=== PATIENT | male | born 1985 | race Two or more races ===

== ENCOUNTER 2016-12-21 22:55 | Emergency (ER) | payer OTHER ==
[~2016-12-21] VITALS: Ht 170.2 cm; Wt 77.1 kg
[2016-12-22 00:05] VITALS: BP 129/82
[2016-12-22 00:25] LABS: MEAN CORPUSCULAR HEMOGLOBIN 32.2 PG (27.0-31.0); MEAN CORPUSCULAR HGB CONC 33.2 G/DL (32.0-36.0); MEAN CORPUSCULAR VOLUME 97 FL (80-99); MEAN PLATELET VOLUME 8.2 FL (6.5-10.1); PLATELET COUNT 221 K/UL (150-450); RED BLOOD COUNT 5.46 M/UL (4.70-6.10); RED CELL DISTRIBUTION WIDTH 11.3 % (11.6-14.8); WHITE BLOOD COUNT 5.3 K/UL (4.8-10.8)
[2016-12-22 00:40] LABS: ACETAMINOPHEN < 10 ug/mL (10-30); ALANINE AMINOTRANSFERASE 21 U/L (3-41); ALBUMIN/GLOBULIN RATIO 1.4 (1.0-2.7); ALCOHOL 117 mg/dL; ANION GAP 14 (5-15); ASPARTATE AMINO TRANSFERASE 38 U/L (5-40); CALCIUM 8.4 mg/dL (8.6-10.2); CARBON DIOXIDE 27 mEQ/L (20-30); CHLORIDE 103 mEQ/L (98-107); CREATININE 0.8 mg/dL (0.7-1.2); GLOMERULAR FILTRATION RATE > 60 mL/min (>60); HEMOLYSIS 261; POTASSIUM 5.4 mEQ/L (3.4-4.9); SODIUM 144 mEQ/L (135-145); TOTAL PROTEIN 7.2 g/dL (6.6-8.7)
--- NOTE | 2016-12-22 00:40 | Emergency Room Report ---
History of Present Illness General Chief Complaint: Overdose Source: Patient, EMS Present Illness HPI 31 YO FtoM transgender patient BIBEMS after intentional overdose by taking 10 5mg Valium at home because "i wanted to end it." Patient endorses tough time with depression, difficult process transitioning from Female to Male, alienation from family. He denies taking other drugs. Drank ETOH earlier in the day. Denies other medical problems. Denies known psych problems. Has tried suicide before by "cutting." Allergies: Coded Allergies: No Known Allergies (Unverified , 12/21/16) Patient History Past Medical History: none Past Surgical History: none Pertinent Family History: none Social History: Reports: alcohol use Immunizations: UTD Reviewed Nursing Documentation: PMH: Agreed, PSxH: Agreed Nursing Documentation-PMH Past Medical History: No Stated History Review of Systems All Other Systems: negative except mentioned in HPI Physical Exam Vital Signs Date Time Temp Pulse Resp B/P Pulse Ox O2 Delivery O2 Flow Rate FiO2 12/21/16 22:48 100 16 129/82 100 Room Air Sp02 EP Interpretation: reviewed, normal General Appearance: normal inspection, well appearing, no apparent distress, alert Head: normocephalic, atraumatic Eyes: bilateral eye EOMI, bilateral eye PERRL ENT: normal ENT inspection, hearing grossly normal, normal voice Neck: normal inspection, full range of motion, supple, no bony tend Respiratory: normal inspection, lungs clear, normal breath sounds, no respiratory distress, no retraction, no wheezing Cardiovascular #1: regular rate, rhythm, no edema Gastrointestinal: normal inspection, normal bowel sounds, non tender, soft, no guarding, no hernia Genitourinary: no CVA tenderness Musculoskeletal: normal inspection, back normal, normal range of motion, Cathy' s Sign negative Neurologic: normal inspection, alert, oriented x3, responsive, chief of staff III-XII nml as tested, motor strength/tone normal, speech normal Psychiatric: normal inspection, judgement/insight normal, memory normal, mood/ affect normal, no suicidal/homicidal ideation, no delusions Skin: normal inspection, normal color, no rash Medical Decision Making Diagnostic Impression: Primary Impression: Drug overdose Qualified Codes: T50.902A - Poisoning by unspecified drugs, medicaments and biological substances, intentional self-harm, initial encounter Additional Impressions: Suicidal ideation Marijuana abuse Hyperkalemia MARISELA (acute kidney injury) ER Course 31 YO M with SI with valium overdose. VSS. Afebrile. Airway patent. No active SI, HI or AVH now. PLAN Medical clearance PET EKG Diagnostic Results Rate: normal Rhythm: NSR ST Segments: no acute changes ASA given to the pt in ED: No Rhythm Strip Diag. Results EP Interpretation: yes Rate: 91 Rhythm: NSR, no PVC's, no ectopy Reevaluation Time: 00:58 Last Vital Signs Date Time Temp Pulse Resp B/P Pulse Ox O2 Delivery O2 Flow Rate FiO2 12/21/16 22:48 100 16 129/82 100 Room Air Status: improved Reevaluation Impression Labs: H&H stable. No leuks. Mild MARISELA. Utox: + for benzos, MJ. Elevated ETOH level A: SI with valium OD - no active SI, HI, AVH currently Mild MARISELA - tx with IVF NS hydration was given Mild HyperK: No observed EKG changes. Patient refused albuterol. 1:12am When I discussed with patient need to do albuterol for hyperK, patient states he does not want to stay, has job to go to at 7am and needs his refill of testosterone, has appt with doctor tomorrow. Upon further discussion, patient states it wasnt really a suicide attempt as much as frustration that his wants a divorce and non-acceptance by her family. I strongly advised patient to stay in ED for futher observation, management and ultimately a PET evaluation but he is adamant about leaving Patient is clinically sober and has been since arrival in ED despite elevated ETOH level, is free from from distracting injury, and has intact judement and capacity to decide to leave against medical advice. Agreement on symptoms: patient came in with suicidal ideation and found to have hyperK, MARISELA which we attempted to treat. Patient verbalized understanding of my concern. I explained to patient the limitations of what's done so far, what we have treated and the plan for PET evaluation. h He verbalized back to me his understanding of the risks of leaving, including suicide, permanent disability and . He understands to return here or seek immediate attention if he feels suicidal again. Patient signed AMA forms and RN placed with chart. Disposition: AGAINST MEDICAL ADVICE Condition: Serious Referrals: NON PHYSICIAN (PCP) ZHANG MARTINI M.D. Dec 22, 2016 00:40
[2016-12-22] MEDS ORDERED: Albuterol ud Inhalation HHN ONE (01:00)
[2016-12-22 01:28] VITALS: BP 131/85
[2016-12-22 01:30] VITALS: BP 131/85
--- NOTE | 2016-12-22 18:52 | Cardiology Report ---
APPROVED REPORT EKG Measurement Heart [id number] [place] [id number] Normal sinus rhythm Normal ECG
== END 2016-12-22 01:25 | disposition left against medical advice (07) ==
LOC: EDBD 22:55 → EMR 23:34
DX: T50.902A Poisoning by unspecified drugs, medicaments and biological substances, intentional self-harm, initial encounter (principal); R45.851 Suicidal ideations; F12.10 Cannabis abuse, uncomplicated; E87.5 Hyperkalemia; N17.9 Acute kidney failure, unspecified; Y92.9 Unspecified place or not applicable; Y99.8 Other external cause status
CPT/HCPCS: 36415; 80053; 80300; 80329; 82550; 82962; 85025; 93005; 96360